=== PATIENT | female | born 1985 | race African-American/Black ===

== ENCOUNTER 2019-04-26 11:10 | Emergency (ER) | payer MEDICAID, OTHER ==
[2019-04-26 11:19] VITALS: BP 141/68
--- NOTE | 2019-04-26 11:55 | ED Physician Documentation ---
History of Present Illness - Stated complaint Stated Complaint: HEMROID PX - Chief complaint Chief Complaint: General - History obtained from History obtained from: Patient - History of Present Illness Timing: Today - Additonal information Additional information: 34-year-old female who has had some hemorrhoids has never usually had much in the way of pain with these. She has now developed significant pain and this is not been relieved with the use of Preparation H. Review of Systems Constitutional: denies: Fever Eyes: denies: Decreased vision Ears: denies: Ear pain Nose: denies: Congestion Throat: denies: Sore throat Cardiac: denies: Chest pain / pressure, Palpitations Respiratory: denies: Dyspnea, Cough GI: reports: Other (rectal pain). denies: Abdominal Pain, Nausea, Vomiting, Constipation, Diarrhea : denies: Dysuria, Frequency Musculoskeletal: denies: Neck pain, Back pain, Extremity pain Neurologic: denies: Generalized weakness, Focal weakness, Numbness PD PAST MEDICAL HISTORY - Past Medical History Past Medical History: Yes - Past Surgical History Past Surgical History: No - Present Medications Home Medications: Ambulatory Orders Medication Instructions Recorded Confirmed Hydrocortisone/Pramoxine 100 mg RC BID #10 gm 04/26/19 [Proctofoam-Hc Foam] - Allergies Allergies/Adverse Reactions: Allergies Allergy/AdvReac Type Severity Reaction Status Date / Time No Known Drug Allergies Allergy Verified 04/26/19 11:17 - Social History Does the pt smoke?: No Smoking Status: Never smoker Does the pt drink ETOH?: Yes ETOH Use: Wine Does the pt have substance abuse?: No - Immunizations Immunizations are current?: Yes PD ED PE NORMAL - Vitals Vital signs reviewed: Yes (hypertensive mild ) - General General: Alert and oriented X 3, No acute distress, Well developed/nourished - HEENT HEENT: Atraumatic, PERRL - Respiratory Respiratory: No respiratory distress - Rectal Rectal: Other (Marilin as tongue trimmer No external hemmorrhoid internal are tender and engourged) - Derm Derm: Normal color, Warm and dry, No rash - Extremities Extremities: No deformity, No edema - Neuro Neuro: Alert and oriented X 3, sanding machine tender automatic 2-12 intact, No motor deficit, No sensory deficit, Normal speech Eye Opening: Spontaneous Motor: Obeys Commands Verbal: Oriented GCS Score: 15 - Psych Psych: Normal mood, Normal affect Results - Vitals Vitals: Vital Signs - 24 hr 04/26/19 11:13 Temperature 36.6 C Heart Rate 69 Respiratory 17 Rate Blood Pressure 141/68 H O2 Saturation 99 Oxygen O2 Source Room air PD MEDICAL DECISION MAKING - ED course Complexity details: reviewed results, re-evaluated patient, considered differential, d/w patient ED course: 34 y/o female with inflamed internal hemorrhoids. I have discussed hemorrhoid care with the patient to include use of OTC hydrocortisone to reduce the inflammation. She is in enough pain to require pain medication. Departure - Departure Disposition: 01 Home, Self Care Clinical Impression: Hemorrhoids, internal Condition: Stable Instructions: ED Hemorrhoids Follow-Up: [facility] [Provider Group] Prescriptions: Hydrocortisone/Pramoxine [Proctofoam-Hc Foam] 100 mg RC BID #10 gm
== END 2019-04-26 12:26 | disposition home or self-care (01) ==
LOC: ED 11:10
DX: K64.8 Other hemorrhoids (principal)
CPT/HCPCS: 99282; 99283